=== PATIENT | female | born 1950 | race Caucasian/White ===

== ENCOUNTER 2020-04-10 12:20 | Observation (INO) | payer MEDICARE, OTHER ==
[~2020-04-10] VITALS: Ht 167.6 cm; Wt 63.4 kg
[2020-04-10] MEDS ORDERED: ONDANSETRON 2MG/ML, 2ML IVPush ONE (13:00)
[2020-04-10] MEDS ORDERED: SODIUM CHLORIDE FLUSH 10ML SYR IVF ONE (13:00)
[2020-04-10] MEDS ORDERED: MORPHINE SULFATE 4 MG/ML, 1ML IVPush PRN (13:00)
[2020-04-10] MEDS ORDERED: ASPIRIN 81 MG TABLET CHEW PO ONE (13:00)
[2020-04-10 13:12] LABS: BASOPHILS % (AUTO) 1 % (0-1); EOSINOPHILS % (AUTO) 1 % (1-7); LYMPHOCYTES % (AUTO) 22 % (22-44); MEAN CORPUSCULAR HEMOGLOBIN 30.3 pg (27.0-34.8); MEAN CORPUSCULAR HGB CONC 33.3 g/dL (32.4-35.8); MEAN PLATELET VOLUME 7.8 fL (7.4-10.4); MONOCYTES % (AUTO) 8 % (2-9); NEUTROPHILS % (AUTO) 68 % (42-75); PLATELET COUNT 275 x10^3/uL (130-400); RED BLOOD COUNT 5.62 x10^6/uL (3.82-5.3); RED CELL DISTRIBUTION WIDTH 14.4 % (9.6-15.2)
[2020-04-10 13:15] LABS: MD NO
[2020-04-10 13:25] LABS: ALBUMIN 4.5 g/dL (3.4-5.0); CALCIUM 9.7 mg/dL (8.5-10.1)
[2020-04-10] MEDS ORDERED: MORPHINE SULFATE 4 MG/ML, 1ML ONE (13:25)
[2020-04-10] MEDS ORDERED: ONDANSETRON 2MG/ML, 2ML ONE (13:25)
[2020-04-10] MEDS ORDERED: ASPIRIN 81 MG TABLET CHEW ONE (13:26)
[2020-04-10 13:33] LABS: CREATININE 0.93 mg/dL (0.55-1.02); TROPONIN I < 0.015 ng/mL (0.000-0.045)
[2020-04-10 13:44] LABS: ANION GAP 4 mmol/L (5-15); CHLORIDE 111 mmol/L (98-107)
[2020-04-10] MEDS ORDERED: morphine SULFATE/PF 0.5 MG/ML, 10ML IV PRN (15:00)
[2020-04-10] MEDS ORDERED: NITROGLYCERIN 0.4 MG BOTTLE (25 TABS) SL PRN (15:00)
[2020-04-10] MEDS ORDERED: NICOTINE 21 MG/24 HR PATCH.TD24 TD ONE (15:00)
[2020-04-10] MEDS ORDERED: ONDANSETRON ODT 4 MG PO PRN (15:00)
[2020-04-10] MEDS ORDERED: ONDANSETRON 2MG/ML, 2ML IVPush PRN (15:00)
[2020-04-10 15:45] VITALS: BP 159/66
[2020-04-10 15:46] LABS: TROPONIN I < 0.015 ng/mL (0.000-0.045)
[2020-04-10] MEDS ORDERED: ENOXAPARIN 40 MG/0.4 ML SQ SCH (16:00)
[2020-04-10] MEDS: SODIUM CHLORIDE 0.9% 1,000 ML IV SCH (16:27)
[2020-04-10] MEDS ORDERED: FLU VACC QS2020-21(6MOS UP)/PF 60MCG/0.5 ML SYR IM-VACC ONE (17:00)
[2020-04-10 18:01] VITALS: BP 159/66
[2020-04-10 19:05] VITALS: BP 96/63
[2020-04-10] MEDS ORDERED: ATORVASTATIN 40 MG TABLET PO SCH (21:00)
[2020-04-10] MEDS ORDERED: AMLODIPINE 2.5 MG TABLET PO SCH (21:00)
[2020-04-10] MEDS ORDERED: LISINOPRIL 10 MG TABLET PO SCH (21:00)
[2020-04-10 21:01] LABS: TROPONIN I < 0.015 ng/mL (0.000-0.045)
[2020-04-10] MEDS: ACETAMINOPHEN 325 MG TABLET PO PRN (21:06)
[2020-04-11 00:18] VITALS: BP 96/59
[2020-04-11] MEDS: ACETAMINOPHEN 325 MG TABLET PO PRN ×2 (05:02→13:37)
[2020-04-11] MEDS ORDERED: ASPIRIN 325 MG TABLET PO SCH (06:00)
[2020-04-11 07:19] VITALS: BP 109/68
[2020-04-11] MEDS: SODIUM CHLORIDE 0.9% 1,000 ML IV SCH (07:48)
[2020-04-11] MEDS ORDERED: MORPHINE SULFATE 4 MG/ML, 1ML IVPush PRN (09:00)
[2020-04-11] MEDS ORDERED: REGADENOSON 0.4 MG/5 ML SYRINGE ONE (09:30)
[2020-04-11] MEDS ORDERED: LISI5TAB7 PO (10:39)
[2020-04-11] MEDS ORDERED: AMLO2.5T5 PO (10:39)
[2020-04-11 11:33] LABS: BASOPHILS % (AUTO) 1 % (0-1); EOSINOPHILS % (AUTO) 0 % (1-7); LYMPHOCYTES % (AUTO) 7 % (22-44); MEAN CORPUSCULAR HEMOGLOBIN 30.3 pg (27.0-34.8); MEAN CORPUSCULAR HGB CONC 33.1 g/dL (32.4-35.8); MEAN PLATELET VOLUME 8.2 fL (7.4-10.4); MONOCYTES % (AUTO) 5 % (2-9); NEUTROPHILS % (AUTO) 87 % (42-75); PLATELET COUNT 226 x10^3/uL (130-400); RED BLOOD COUNT 5.28 x10^6/uL (3.82-5.3); RED CELL DISTRIBUTION WIDTH 14.7 % (9.6-15.2)
[2020-04-11 11:47] LABS: CHOL/HDL RATIO 2.8; LDL/HDL RATIO 1.6 (0.5-3.0)
[2020-04-11 11:59] LABS: MD SCAN
[2020-04-11] MEDS ORDERED: ATOR40TA78 PO (12:56)
[2020-04-11 13:32] VITALS: BP 112/73
[2020-04-11] MEDS ORDERED: LISINOPRIL 5 MG TABLET PO SCH (21:00)
== END 2020-04-11 14:50 | disposition home or self-care (01) ==
LOC: ED 13:23 → INTOOBSV 14:36 → EDIP 14:36 → 5SO 15:35 → DCLOUNGE 04-11 14:41
PROVIDERS: ADMIT Internal Medicine; ATTEND Internal Medicine
DX: R07.89 Other chest pain (principal); D75.1 Secondary polycythemia; I10 Essential (primary) hypertension; R55 Syncope and collapse; I25.2 Old myocardial infarction; F17.200 Nicotine dependence, unspecified, uncomplicated; Z90.710 Acquired absence of both cervix and uterus; Z79.899 Other long term (current) drug therapy; Z23 Encounter for immunization
CPT/HCPCS: 36415; 71045; 78452; 80048; 80061; 82040; 83880; 84484; 85025; 85379; 90686; 93005; 93017; 93971; 96361; 96372; 96374; 96375; 99285; A9502; G0008; G0378; J1650; J2270; J2405; J2785; J7030